=== PATIENT | female | born 1970 ===

== ENCOUNTER 2021-07-23 12:39 | Emergency (ER) | payer SELFPAY ==
[2021-07-23] MEDS ORDERED: Diphtheria,Pertussis(Acell),Tetanus Vaccine 0.5 ML Syringe IM ONE (13:56)
[2021-07-23] MEDS ORDERED: Ibuprofen 800 MG Tab PO ONE (13:59)
== END 2021-07-23 14:15 | disposition home or self-care (01) ==
LOC: DL.ED 12:39
DX: S60.221A Contusion of right hand, initial encounter (principal); I10 Essential (primary) hypertension; Z23 Encounter for immunization; W23.0XXA Caught, crushed, jammed, or pinched between moving objects, initial encounter
CPT/HCPCS: 73130; 90471; 90715; 99283; A9270; 99285